=== PATIENT | female | born 1955 | race Caucasian/White ===

== ENCOUNTER → 2019-08-10 09:45 | Outpatient (CLI) | payer OTHER, SELFPAY ==
--- NOTE | 2019-08-10 | FLU_PTH ---
PATIENT: RAMÓN SIMON LOC: [facility] U#:[id number] AGE/SX: 69/F ROOM: RE08/10/[address]: Dr. Anam Monterroso MD : 1955 BED: DIS: SPEC #: [id number] RECD: 08/10/19 12:11 STATUS: KAMRYN NICOLA #: [id number] HUSEYIN: 08/10/19 00:[address]: Anam Monterroso DEPT: CYTOLOGY RECD BY: Shashi Lechuga Tissues: Parotid gland, NOS Procedures: Special Stain Group II Surgery Specimen Level IV Cytospin Fluid HEADER OPERATION: PRE-OP DIAGNOSIS: Right parotid mass TISSUE SUBMITTED: Right parotid mass for cytology DIAGNOSIS CYTOLOGY Right parotid mass, FNA (cytospin and cell block): Consistent with pleomorphic adenoma. SJ:rex 08/11/19 COMMENT Case has been reviewed in consultation with Dr. Hernández who concurs with the above diagnosis. IDC:AM CYTOLOGY STUDY Slides are reviewed. CYTOLOGY GROSS Received is 40 ml of red cloudy fluid labeled with the patient's name and and designated per the requisition as right parotid mass. Submitted for cytology preparation including cell block. / rex 08/10/19 TC:1 CPT: 54987, 15494
== END ==
PROVIDERS: Referring Provider Otolaryngology; Visit Provider Otolaryngology
DX: R22.9 Localized swelling, mass and lump, unspecified (principal)
CPT/HCPCS: 88108; 88305; 88313

== ENCOUNTER 2019-09-25 06:07 | Day surgery (SDC) | payer MEDICARE, SELFPAY ==
--- NOTE | 2019-09-24 09:34 | EKG12_ITS ---
Test Reason : PREOP Blood Pressure : / mmHG Vent. Rate : 063 BPM Atrial Rate : 063 BPM P-R Int : 150 ms QRS Dur : 088 ms QT Int : 404 ms P-R-T Axes : 045 029 029 degrees QTc Int : 413 ms Normal sinus rhythm Normal ECG Confirmed by MAGDA BROWN, BEREKET ([id number]), sports editor MARC MEJIA ([id number]) on 09/28/2019 11:34:26 AM Referred By: Anam Monterroso Confirmed By:RAIN MAN MD
[2019-09-24 09:55] LABS: Hematocrit 43.1 % (37-47); Hemoglobin 13.1 g/dL (12.0-15.0); Mean Corp Hgb Conc 30.4 g/dL (32-36); Mean Corpuscular Hgb 27.1 pg (27.0-32.0); Mean Corpuscular Volume 89.2 fL (81-99); Mean Platelet Vol. 11.1 fl (6.2-12.0); Platelet Count 250 K/mm3 (150-450); RBC Distribution Width CV 15.2 % (11.6-14.6); RBC Distribution Width SD 49.6 fl (35.1-43.9); Red Blood Count 4.83 M/mm3 (4.2-5.4); White Blood Count 7.1 K/mm3 (4.4-11.0)
[2019-09-24 10:09] LABS: Partial Thromboplast Time 23.6 Seconds (24.1-36.2); Prothrombin Time (Protime)PT. 12.5 SECONDS (11.7-14.9)
[2019-09-24 10:30] LABS: AST(SGOT) 16 U/L (15-37); Alanine Aminotransfer ALT/SGPT 25 U/L (13-56); Albumin, Serum 3.4 g/dL (3.2-5.0); Alkaline Phosphatase 94 U/L (45-117); Bilirubin, Direct 0.11 mg/dL (0.00-0.30); Globulin 3.9 g/dL (2.2-4.2); Protein, Total 7.3 g/dL (6.4-8.2)
[2019-09-25] VITALS (8 sets, daily range): BP systolic 121–155; BP diastolic 70–78; PULSE 67–89; RESP 16; TEMP 36.1–37.2; O2SAT 93–99; BMI 26.1
--- NOTE | 2019-09-25 | PAR_PTH ---
PATIENT: RAMÓN SIMON LOC: [facility] [place] U#:[id number] AGE/SX: 64/F ROOM: RE09/25/[address]: Dr. Anam Monterroso MD : 1955 BED: DIS: 09/25/2019 SPEC #: [id number] RECD: 09/25/19 09:18 STATUS: KAMRYN REEdgar #: [id number] HUSEYIN: 09/25/19 00:[address]: Anam Monterroso DEPT: SURGICAL PATHOLOGY RECD BY: Valerie Garcia ENTERED: 09/25/19 10:06 SP TYPE: PAROTID OTHR DR: MD Dr. 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 ROGER:rex 09/25/19 MICROSCOPIC DIAGNOSIS Right parotid, parotidectomy: Pleomorphic adenoma. Three out of three lymph nodes with no pathologic change. See comment. AM:rex 09/28/19 COMMENT The lesion appears to have been completely excised in the planes examined. Reference is made to the patient's right parotid mass, fine needle aspiration from 08/11/19 ([id number]) in which changes consistent with pleomorphic adenoma were identified. MICROSCOPIC DESCRIPTION Slides are reviewed. GROSS DESCRIPTION Received fresh for frozen section diagnosis labeled with the patient's name is a specimen designated right parotid gland. The specimen consists of a piece of glandular tissue consistent with superficial parotidectomy specimen weighing 15.6 gm and measuring 5 x 5 x 2 cm. The specimen is inked and serially sectioned and reveals a hall, solid circumscribed mass measuring 1.5 x 1.5 x 1 cm. A section of the tumor with surrounding tissue is submitted for frozen section diagnosis. The entire specimen is submitted in 11 cassettes as follows: 1 - frozen section, 2-11 - rest of the specimen from one end to another end. / ROGER:rex 09/25/19 TC:1 CPT: 75476,89570
[2019-09-25] MEDS: Lactated Ringers 1,000 ML 100 ML IV (06:46)
--- NOTE | 2019-09-25 09:53 | PCM.OPRPT ---
Problem List (1) Benign neoplasm of salivary gland Status: Acute Qualifiers: Benign neoplasm of salivary gland location: parotid gland Qualified Code(s): D11.0 - Benign neoplasm of parotid gland Report of Operation Date of Procedure: 09/25/19 Pre-Operative Diagnosis: Benign tumor right parotid gland Post-Operative Diagnosis: Same Surgery/Procedure Performed:: Right superficial parotidectomy with preservation of facial nerve Description of Surgical Findings:: Soila is a 64-year-old female who presents with a enlarging mass of the right parotid. This is been biopsied and was found to be consistent with a pleomorphic adenoma however ago having a significant growth over several weeks excision was elected. The risk of COVID-19 transmission is a possibility during her surgical procedure was discussed and the patient was understanding willing to undertake this possible risk of exposure. The risks, alternatives, potential complications, and benefits were discussed at length and any questions answered to the patient and/or caregiver's satisfaction. Witnessed informed consent was obtained in the office, and the patient and/or caregiver was agreeable to proceed. Procedure went as follows: The patient was identified in the preoperative holding and the right parotid lesion site marked in accordance with the patient's physical skin exam, office notes, and consent. The patient was then brought to the operating room, placed under general anesthesia and intubated. When appropriate anesthesia was obtained, the facial nerve monitoring electrodes were then placed in accordance with the manufacture's directions over the right side of the face and confirmed to be operational. The planned incision was then marked with a marking pen and injected with 1% lidocaine with 100,000 epinephrine for a total of 7 mL. After allowing for vasoconstriction, a standard parotidectomy incision was then made using a 15 blade scalpel through the skin and subcutaneous tissues. The subcutaneous tissue was then dissected and the greater auricular nerve identified with the branches along the posterior aspect of the incisional flap preserved. Dissection was then carried down along the sternocleidomastoid freeing the parotid attachments to this muscle. Dissection was then carried out along the tragal cartilage and the main trunk of the facial nerve identified. The gland was then resected following out along the facial nerve branches working inferiorly to superiorly and freeing the mass from the parotid gland sacrificing a cuff of normal-appearing parotid tissue. This was then sent for surgical specimen. This was consistent with pleomorphic adenoma with clean operative margins. Operative stimulation of the facial nerve branches confirmed preservation of function. The wound bed was then copiously irrigated with saline solution and a #7 flat AMANDA drain placed and brought out through separate stab incision in the skin. The wound was then closed deeply with interrupted 3-0 Vicryl sutures followed by a running 5-0 Monocryl to the skin. The patient was then returned to anesthesia, was revived, and extubated without complication having tolerated the procedure well. Type of Anesthesia:: General Anesthesiologist: Anam Zaman Special Medications: none Specimen's removed: right parotid mass Drains: #7 AMANDA drain Estimated Blood Loss (mL): 10 mL Fluids Replaced: 1700 mL Grafts/Implants Used: none - Complications none - Admit VTE Documentation VTE Present on Admission: No VTE Mechan Device Prophylaxis: SCD's VTE Pharm Prophylaxis ordered?: No
--- NOTE | 2019-09-25 09:56 | DCINST_ITS ---
- Discharge Diagnoses Current Active Problems: Current Active and Chronic Problems Benign neoplasm of salivary gland (Acute) You will use the following diet at home:: No restrictions Your food should be the consistency of: Regular Discharge Activity: Return to Normal Activity, May not drive while taking narcotic pain medications. Call your doctor if your incision/area has: Sudden Increased Bleeding, Increased Pain/ Swelling, Swelling at the incision site Call your doctor if you observe: Fever of 101 or Higher, Uncontrolled pain Additional Instructions: return to office tomorrow for drain removal, record drain output every 8 hours Allergies/Adverse Reactions: Allergies Tetracyclines Adverse Reaction (Verified 09/25/19 06:34) PT UNSURE OF REACTION Medications to take at Discharge Atorvastatin Calcium [Lipitor] 20 mg PO DAILY 09/18/19 Calcium Carbonate/Vitamin D3 [Calcium 500 mg Chewable Tablet] 1 ea PO BID 09/18/19 Celecoxib [Celebrex] 200 mg PO DAILY 09/18/19 Cetirizine HCl [Zyrtec] 10 mg PO DAILY 09/18/19 Cholecalciferol (VIT D3) [Vitamin D] 1,000 unit PO DAILY 09/18/19 Clobetasol Propionate [Clobetasol Propionate Micro] 0.5 gm MC DAILY 09/18/19 Mv-Mn/Folic AC/Calcium/Vit K1 [Women's 50 Plus Daily Formula] 1 ea PO DAILY 09/18/19 Pantoprazole Sodium [Protonix] 40 mg PO DAILY 09/18/19 Raloxifene HCl 60 mg PO DAILY 09/18/19 Sertraline HCl [Zoloft] 150 mg PO DAILY 09/18/19 Primary Care Physician: Flako Damon MD [Primary Care Provider] - Test Results: Test results from this visit will be discussed in further detail at your follow- up appointment, if applicable. Please Follow Up With: Anam Monterroso MD When: 1 day Proposed Discharge Date: 09/25/19
[2019-09-25] MEDS: Acetaminophen 500 MG Tablet PO (12:06)
== END 2019-09-25 12:49 | disposition home or self-care (01) ==
LOC: SDC 06:09 → AC 06:10
PROVIDERS: Anesthesiology; Referring Provider Otolaryngology; Visit Provider Otolaryngology
PROC: (CPT 42410; principal; 2019-09-25 07:00)
DX: D11.0 Benign neoplasm of parotid gland (principal); F41.9 Anxiety disorder, unspecified; F32.9 Major depressive disorder, single episode, unspecified; Z79.899 Other long term (current) drug therapy; K21.9 Gastro-esophageal reflux disease without esophagitis; K44.9 Diaphragmatic hernia without obstruction or gangrene; E78.5 Hyperlipidemia, unspecified; Z86.2 Personal history of diseases of the blood and blood-forming organs and certain disorders involving the immune mechanism; Z11.59 Encounter for screening for other viral diseases
CPT/HCPCS: 42415; 36415; 80076; 85027; 85610; 85730; 87635; 88305; 88307; 88331; 93005; G2023; J7120; J2405; U0004